=== PATIENT | male | born 1985 | race African-American/Black ===

== ENCOUNTER 2018-07-19 17:35 | Emergency (ER) | payer OTHER ==
[~2018-07-19] VITALS: Ht 203.2 cm; Wt 121.6 kg
[2018-07-19] MEDS ORDERED: METH4TAB3 PO (17:47)
[2018-07-19] MEDS ORDERED: MYCO250C PO (17:47)
[2018-07-19] MEDS ORDERED: LOSA50TA39 PO (17:47)
--- NOTE | 2018-07-19 17:51 | NUR ---
PT IS IN ROOM #2A. DR MILLER EVALUATED THE PT.
--- NOTE | 2018-07-19 18:32 | NUR ---
Larisa clark in EDM - 07/19/18 at 1836 by FELICITAS PT REFUSED FURTHER TREATMENT AND ELOPED. DR MILLER NOTIFIED. 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
--- NOTE | 2018-07-19 18:36 | NUR ---
PT WAS D/C TO HOME. D/C INSTRUCTIONS GIVEN TO THE PT.
[2018-07-19 18:37] VITALS: BP 136/77
== END 2018-07-19 18:38 | disposition home or self-care (01) ==
LOC: ER 17:35
DX: L03.012 Cellulitis of left finger (principal); Z79.899 Other long term (current) drug therapy
CPT/HCPCS: A4663